=== PATIENT | male | born 1970 | race Caucasian/White ===

== ENCOUNTER 2024-10-22 17:29 | Inpatient (IN) | payer MEDICAID, SELFPAY ==
[2024-10-22] VITALS (19 sets, daily range): BP systolic 176–252; BP diastolic 114–170; PULSE 58–104; RESP 15–32; TEMP 37–37.1; O2SAT 93–100; BMI 46.7
--- NOTE | 2024-10-22 17:32 | PC.NURSE ---
Patient to er via ems from home with c/o sob, non med compliant with medication, increased sob today, patient has h/o copd smokes intermittently, and CHF. Patient states he has been out of all his home medications for a month. Patient currently speaking 2-3 sentences with difficulty, RR 26 bpm and 02 sats 95% on 4l/02 via MA, chart up to be seen by er provider.
--- NOTE | 2024-10-22 17:40 | EKG_ITS ---
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1970 Requested By: Prince Vásquez Order Number: [id number] Reading MD: Prince Vásquez Measurements Intervals [place] Rate: 97 P: 74 [place]: 223 QRS: -35 QRSD: 118 T: 113 QT: 387 QTc: 493 Interpretive Statements SINUS RHYTHM WITH FIRST DEGREE AV BLOCK LEFT AXIS DEVIATION [QRS AXIS < -30] MODERATE INTRAVENTRICULAR CONDUCTION DELAY [110+ ms QRS DURATION] ST DEVIATION AND MODERATE T-WAVE ABNORMALITY, CONSIDER LATERAL ISCHEMIA [-0.1+ mV T-WAVE IN I/aVL/V5/V6] Compared to ECG 02/02/2024 15:41:34 First degree AV block now present T-wave abnormality still present Possible ischemia still present /store/S0/[id number]/ecg/[id number].pdf
--- NOTE | 2024-10-22 18:11 | EDNOTE_ITS ---
ED SOB =RME/HPI General Chief Complaint: Shortness of Breath/Dyspnea Stated Complaint: SHORTNESS OF BREATH Time Seen by Provider: 10/22/24 18:11 Arrival date/time: 10/22/24 17:29 Limitations: no limitations RME / HPI RME / HPI Narrative: DR. PARRA?S MAIN ED EVALUATION: 54-year-old male with history of Sleep apnea, Type II DM, CHF and COPD presenting to the emergency department via EMS who is presenting for chief complaint of worsening shortness of breath and low chest pain x last couple of months. Patient reports fluid and phlegm in the lungs and feels like he is drowning. He has been off of his CHF and COPD medications for a couple of months now. Patient decided to come in for evaluation because his got tired of hearing him complain . Patient denies any other associated symptoms or medical complaints. - PMH: Arrhythmia, Congestive Heart Failure, Cardiomyopathy, Edema, Hypertension, Chronic Obstructive Pulmonary Disease (COPD), Asthma and Sleep Apnea, Hiatal Hernia, Diabetes Mellitus Type 2, Depression and Anxiety - PSH: Denies - Social history: Smoker - Current medications: Reviewed PCP is Salvador Richards MD MD Complaint: shortness of breath and chest pain Onset (ago): month(s) (2) Context: medication noncompliance Consistency/Duration: constant Exacerbating factors: exertion Known history of: COPD, congestive heart failure and diabetes Associated symptoms: chest pain and sputum production Related Data Previous Rx's ?Medication ?Instructions ?Recorded albuterol sulfate 90 mcg/actuation 2 puff inhalation Q 6H PRN 12/08/19 aerosol inhaler shortness of breath or wheez ing #18 grams amlodipine 10 mg tablet 10 mg PO QDAY 30 days #30 ta bs 02/08/24 aspirin 81 mg tablet,delayed 81 mg PO QDAY 30 days #30 tabs 02/08/24 release blood sugar diagnostic (Accutrend #50 ea 02/08/24 Glucose test strips) blood-glucose meter (Accu-Chek #1 ea 02/08/24 Guide Glucose Meter) bumetanide 2 mg tablet 2 mg PO BID #60 tabs 4 buspirone 15 mg tablet 7.5 mg (1/2 x 15 mg) PO BID 30 02/08/24 days #30 tabs carvedilol 12.5 mg tablet 25 mg (2 x 12.5 mg) PO Q12HR 30 02/08/24 days #60 tabs dapagliflozin propanediol 10 mg 10 mg PO QAM 30 days # 30 tabs 02/08/24 tablet fluticasone 250 mcg-salmeterol 50 1 inh inhalation BID 30 days #2 ea 02/08/24 mcg/dose blistr powdr for inhalation insulin glargine 100 unit/mL (3 30 unit (0.3 mL) subcu t QPM #15 mL 02/08/24 mL) subcutaneous pen (Lantus Solostar U-100 Insulin) insulin lispro 100 unit/mL 8 unit (0.08 mL) subcut TID WM #15 02/08/24 subcutaneous pen (Admelog SoloStar mL U-100 Insulin lispro) lancets 23 gauge (Comfort EZ #100 ea 02/08/24 Lancets) sacubitril 24 mg-valsartan 26 mg 1 tab PO BID 30 days #60 tabs 02/08/24 tablet (Entresto) tamsulosin 0.4 mg capsule 0.4 mg PO QDAY 30 days #30 c aps 02/08/24 Allergies Allergy/AdvReac Type Severity Reaction Status Date / Time ibuprofen Allergy Unknown HIVES Verified 06/26/23 00:02 Penicillins Allergy Unknown UNKNOWN Verified 06/26/23 00:02 Sulfa (Sulfonamide Allergy Unknown UNKNOWN Verified 06/26/23 00:02 Antibiotics) vancomycin Allergy Unknown UNKNOWN Verified 06/26/23 00:02 Review of Systems Review of Systems Systems Reviewed: All systems reviewed, normal except as documented Cardiovascular Cardiovascular: Reports chest pain, Reports dyspnea and Reports dyspnea on exertion Respiratory Respiratory: Reports dyspnea, Reports dyspnea on exertion and Reports excessive phlegm production Past Medical History Past Medical History CARDIAC: Positive Cardiac Disorders, Cardiac Arrhythmia, Congestive Heart Failure, Cardiomyopathy, Edema and Hypertension RESPIRATORY: Positive Chronic Obstructive Pulmonary Disease (COPD), Asthma and Sleep Apnea GASTROINTESTINAL: Positive Gastrointestinal Disorders and Hiatal Hernia ENDOCRINE: Positive Endocrine Disorders and Diabetes Mellitus Type 2 PSYCHO/SOCIAL: Positive Depression and Anxiety Social History SMOKING STATUS: Current some day smoker ED Exam General Limitations: Present no limitations General appearance: Present alert, obese and other (appears clinically ill, awake, sitting with feet over the bed urinating) Head Head exam: Present atraumatic, normocephalic and normal inspection Eye Eye exam: Absent EOMI, scleral icterus or nystagmus ENT ENT exam: Present mucous membranes dry Neck Neck exam: Present normal inspection, full ROM and trachea midline Chest Chest inspection: Present normal inspection and symmetric chest wall rise; Absent rash Respiratory Respiratory exam: Present respiratory distress and other (decreased lung sounds, tachypneic); Absent wheezes or accessory muscle use Cardiovascular Cardiovascular exam: Present tachycardia; Absent normal rhythm Abdominal Exam Abdominal exam: Present soft and other (large abdomen); Absent distention, tenderness, guarding, rebound or rigidity Extremities Exam Extremities exam: Present other (vascular changes BLL); Absent pedal edema Back Exam Back exam: Present other Neurological Exam Neurological exam: Present alert; Absent motor sensory deficit Psychiatric Psychiatric exam: Present normal affect Skin Skin exam: Present diaphoresis Course Course Course Narrative: 18:12: Sepsis alert initiated. Patient went on LASIX due to increased CHF symptoms. At this time will not start the 30k bolis. Re-evaluation is to be completed Quality Measures Current suspected stage: sepsis Possible source: pulmonary Blood cultures ordered: yes Antibiotic ordered: Yes Pertinent labs: 10/22/24 18:24 Lactic Acid 2.0 mMol/L (0.4-2.0) Procalcitonin 0.30 ng/ml (0.0-0.49) sepsis Orders Category Date Time Status [employer] Machine Set Up Mechanic Q4H START 00 Care 10/22/24 17:40 Active [employer] Machine Set Up Mechanic STAT Care 10/22/24 18:12 Completed Continuous Pulse Oximetry STAT Care 10/22/24 18:12 Completed EKG (ED ONLY) *Do not use* NOW Care 10/22/24 17:40 Completed Insert IV NOW Care 10/22/24 18:12 Completed NPO STAT Care 10/22/24 18:12 Active Strict Intake and Output Routine Care 10/22/24 18:12 Ordered EKG (ED Only) Stat Exams 10/22/24 17:40 Ordered XR chest 1V SEPSIS PROTOCOL Stat Exams 10/22/24 18:13 Completed B-Type Natriuretic Peptide Stat Lab 10/22/24 19:00 Completed Blood Culture (Lab) Stat Lab 10/22/24 18:24 Received CBC Stat Lab 10/22/24 19:00 Completed Comprehensive Metabolic Panel Stat Lab 10/22/24 18:24 Completed Drug Screen,Urine Stat Lab 10/22/24 19:19 Completed LDH (Lactate Dehydrogenase) Stat Lab 10/22/24 18:24 Completed Lactate (Lactic Acid) Stat Lab 10/22/24 18:24 Completed Lipase Stat Lab 10/22/24 18:24 Completed Magnesium Stat Lab 10/22/24 18:24 Completed Partial Thromboplastin Time Stat Lab 10/22/24 18:24 Completed Phosphorous Stat Lab 10/22/24 18:24 Completed Procalcitonin Stat Lab 10/22/24 18:24 Completed Prothrombin Time with INR Stat Lab 10/22/24 18:24 Completed Sputum Culture and Gram Stain Stat Lab 10/22/24 20:38 Received Troponin I Stat Lab 10/22/24 18:24 Completed Urinalysis Stat Lab 10/22/24 18:45 Completed Urine Culture Stat Lab 10/22/24 18:45 Received VBG [Venous Blood Gas] Stat Lab 10/22/24 19:14 Completed VBG [Venous Blood Gas] Stat Lab 10/22/24 23:47 Ordered Azithromycin Inj [Zithromax Inj] 500 mg Med 10/22/24 18:21 Pending Sodium Chloride 0.9% 250 ml [Ns] 250 ml IV QDAY Azithromycin Inj [Zithromax Inj] 500 mg Med 10/22/24 18:30 Discontinued Sodium Chloride 0.9% 250 ml [Ns] 250 ml IV X1 Dexmedetomidine 400 Mcg Ivpb [Precedex Ivpb] Med 10/22/24 20:35 Active 400 mcg in 100 ml IV 0.2 mcg/kg/hr Furosemide Inj [Lasix Inj] Med 10/22/24 18:17 Discontinued 40 mg IVP X1 ONE Nitroglycerin Oint 2% [Nitro-paste Oint 2%] Med 10/22/24 18:22 Discontinued 1 inch TOP X1 ONE Nitroglycerin/D5w 50 MG IVPB [Nitroglycerin in D5w Ivpb Med 10/22/24 20:57 Active ] 50 mg in 250 ml IV 5 mcg/min cefTRIAXone/D5w 1gm IV premix [Rocephin/D5w 1gm IV Med 10/22/24 18:20 Discontinued premix] 1 gm in 50 ml IV X1 BiPAP / CPAP NOW RT 10/22/24 18:17 Active Oxygen Delivery NOW RT 10/22/24 18:12 Active Reevaluation(s) Time: 19:00 Reevaluation #2: Patient sleeping, blood pressure improved. Dr. Ann at bedside, treatment for BP at this time. Time: 22:48 Vital Signs Vital signs: Vital Signs Temperature 98.8 F 10/22/24 17:32 Pulse Rate 96 10/22/24 17:32 Respiratory Rate 32 H 10/22/24 17:32 Blood Pressure 252/170 H 10/22/24 17:32 Pulse Oximetry (%) 93 L 10/22/24 17:32 Oxygen Delivery Method Nasal Cannula 10/22/24 17:32 Oxygen Flow Rate 4 10/22/24 17:32 Shortness of Breath / Dyspnea MDM Narrative MDM Narrative:: Scribe Attestation: 10/22/2024 - I, Isabel Schwartz, se scribing for and in the presence of Dr. Parra. Provider Notation: Although this document has been carefully reviewed, there may still be some phonetic and other typographical errors.? These errors are purely grammatical due to imperfections in the software program and should not be construed in any way to compromise the substance of the patient's medical care during this visit. 54-year-old male with history of Sleep apnea, Type II DM, CHF and COPD presenting to the emergency department via EMS who is presenting for chief complaint of worsening shortness of breath and low chest pain x last couple of months. ROS: shortness of breath, low chest pain Differential diagnosis includes CHF exacerbation, Pneumonia, Sepsis, PE, Non- complaint hypertensive urgency, Non-compliant hypertensive emergency Patient data External records reviewed:: [facility] previous records (Reviewed prior ED records from 06/26/23. Patient was last seen for History of medication noncompliance.) and EMS form Clinical information provided by:: patient Social determinants that could affect healthcare access:: none Patient has the following chronic illnesses:: Arrhythmia, Congestive Heart Failure, Cardiomyopathy, Edema, Hypertension, Chronic Obstructive Pulmonary Disease (COPD), Asthma and Sleep Apnea, Hiatal Hernia, Diabetes Mellitus Type 2, Depression and Anxiety How is presenting disease/condition affected by chronic disease/condition?: exacerbated by Evaluation data The following diagnostics were reviewed and interpreted by me:: lab results, radiology exam(s) and EKG tracing(s) (EKG manual reading, October 22, 2024 1741 hours, my interpretation: sinus rhythm, 97 BPM, QTc is 442, no ST elevations or depressions.) Lab and/or radiology exams considered but not ordered:: None Interpretation Summary: RADIOLOGY Chest X-Ray: CXR, my interpretation: reviewed, interpreted, and agreed with radiologist report; see below. FINDINGS: Bpkb-pw-tvzyetlo CHF Ttwh-cb-khavsscm enlargement cardiac contour. Prominent vascular congestion and perihilar and basilar edema Moderate to large right pleural effusion Impression : Utvf-hc-rzozlgxa CHF Moderate to large right pleural effusion LABS Hgb 13.3, Hct 39.9%, RDW Std Dev 47.5, Lymphocyte a# 0.9, Monocyte # 0.9, Immature Granulocyte # 0.04. PT 12.7. VGB O2 Sat 87%. BUN 33, Creatinine 2.2, Estimated Creatinine Clear calc 54.6, eGFR34, Glucose 178, Calcium 8.2, Corrected Calcium 8.4, AST 340, ALT 169, Alkaline Phosphates 157, Lactate Dehydrogenase 591, B-Natriuretic Peptide 2846, Albumin/Globulin Ratio 1.1. Urine protein 3+, Urine glucose 2+, Urine Blood 2+, Urine RBC 6. Medications / Prescriptions Medications or Prescriptions considered but not ordered:: None Medication administrations:: Medication Administration History Azithromycin 500 mg/ Sodium (Chloride) 250 mls @ 250 mls/hr IV QDAY [facility] Stop: 10/29/24 18:20 Dexmedetomidine/Sodium Chloride (Precedex Ivpb) 400 mcg in 100 mls @ 7.385 mls/hr IV .[id number] PRN; Protocol PRN Reason: Per PROTOCOL Stop: 11/21/24 20:31 Last Titration: 10/22/24 23:21 Dose: 0.8 mcg/kg/hr, 29.538 mls/hr Documented By: Titration: 10/22/24 23:00 Dose: 0.6 mcg/kg/hr, 22.154 mls/hr Documented By: Titration: 10/22/24 22:00 Dose: 0.6 mcg/kg/hr, 22.154 mls/hr Documented By: Titration: 10/22/24 21:55 Dose: 0.6 mcg/kg/hr, 22.154 mls/hr Documented By: Titration: 10/22/24 21:25 Dose: 0.4 mcg/kg/hr, 14.769 mls/hr Documented By: Admin: 10/22/24 20:52 Dose: 0.2 mcg/kg/hr, 7.385 mls/hr Documented By: RENZO Co-signed By: NOÉ Nitroglycerin/Dextrose (Nitroglycerin In D5w Ivpb) 50 mg in 250 mls @ 1.5 mls/hr IV .Q24H PRN; Protocol PRN Reason: PER PROTOCOL Stop: 11/21/24 20:56 Discontinued Medications Furosemide (Furosemide Inj 10 Mg/Ml 4ml Vial) 40 mg IVP X1 ONE Stop: 10/22/24 18:18 Last Admin: 10/22/24 18:28 Dose: 40 mg Documented By: ELENA Ceftriaxone Sodium/Dextrose (Rocephin/D5w 1gm Iv Premix) 1 gm in 50 mls @ 100 mls/hr IV X1 ONE Stop: 10/22/24 18:49 Last Infusion: 10/22/24 19:00 Dose: Infused Documented By: Admin: 10/22/24 18:29 Dose: 100 mls/hr Documented By: ELENA Azithromycin 500 mg/ Sodium (Chloride) 250 mls @ 250 mls/hr IV X1 ONE Stop: 10/22/24 19:29 Last Infusion: 10/22/24 20:40 Dose: Infused Documented By: Admin: 10/22/24 19:38 Dose: 250 mls/hr Documented By: NOÉ Nitroglycerin (Nitroglycerin Oint 2% 1 Inch Packet) 1 inch TOP X1 ONE Stop: 10/22/24 18:23 Last Admin: 10/22/24 18:28 Dose: 1 inch Documented By: ELENA See above if any Consultations Consultation(s) initiated? (list below): Yes Consultation #1 (Physician, Specialty, Details): Dr. Ann, hospitalist coming for flight communications specialist, made aware of the patient?s HPI, PMHx, lab and/or radiology results. Discussed treatment plan. Will consult an admission to the hospitalist. Time: 22:50 Diagnosis Shortness of Breath Differential Diagnosis: other (CHF exacerbation, Pneumonia, Sepsis, PE, Non-complaint hypertensive urgency, Non-compliant hypertensive emergency) Most likely diagnosis given after review of the tests above:: Sepsis, Acute renal failure, Acute dyspnea, Hx of medication noncompliance, CHF, BL pleural effusion, Hypertensive emergency Admission Indicated Admission indicated?: indicated Explain why admission is indicated or not indicated:: Sepsis, Acute renal failure, BL pleural effusion, Hypertensive emergency, CHF Admission Request Was there a request for admission?: Yes Admission Attestation Admission request attestation: Discussed case with [] from Hospitalist service regarding admission. Discussed patients ED course, exam findings, labs, and radiology results. The Hospitalist [agrees,declines] to accept the patient for admission. Disposition Plan Disposition Plan: Admit Critical Care Time Critical Care Time Critical Care Time: Yes Total Critical Care Time (min.): 45 Attestation: The high probability of sudden, clinically significant deterioration in the patient?s condition required the highest level of my preparedness to intervene urgently. The services I provided to this patient were to treat and/or prevent clinically significant deterioration. Services included the following: chart data review, reviewing nursing notes and/or old charts, documentation time, it systems analyst consultant collaboration regarding findings and treatment options, medication orders and management, direct patient care, vital sign assessments and ordering, interpreting and reviewing diagnostic studies and lab tests. Aggregate critical care time includes only time during which I was engaged in work directly related to the patient?s care, as described above, whether at bedside or elsewhere in the Emergency Department. It did not include time spent performing other reported procedures or the services of residents, students, nurses or physician assistants. Discharge Plan Plan Patient Disposition: Admit Acute Care w/in Hospital Patient condition on transfer: Stable Prescriptions/Referrals Prescriptions/Med Rec: No Action albuterol sulfate 90 mcg/actuation HFA aerosol inhaler 2 puff IH Q6H PRN (Reason: shortness of breath or wheezing) Qty: 18 0RF amlodipine 10 mg tablet 10 mg PO QDAY 30 Days Qty: 30 3RF bumetanide 2 mg tablet 2 mg PO BID Qty: 60 0RF carvedilol 12.5 mg Tablet 25 mg PO Q12HR 30 Days Qty: 60 3RF aspirin 81 mg Tablet,Delayed Release (Dr/Ec) 81 mg PO QDAY 30 Days Qty: 30 0RF insulin lispro [Admelog SoloStar U-100 Insulin] 100 unit/mL insulin pen 8 unit subcut TIDWM Qty: 15 3RF insulin glargine [Lantus Solostar U-100 Insulin] 100 unit/mL (3 mL) insulin pen 30 unit subcut QPM Qty: 15 3RF (DME) Comfort EZ Lancets 23 gauge misc See Rx Instructions .Route Qty: 100 3RF Rx Instructions: As directed (DME) blood-glucose meter [Accu-Chek Guide Glucose Meter] Misc See Rx Instructions .Route Qty: 1 0RF Rx Instructions: As directed (DME) Accutrend Glucose test strips Strip See Rx Instructions .Route Qty: 50 3RF Rx Instructions: As directed fluticasone propion-salmeterol 250-50 mcg/dose blister with device 1 inh INHALATION BID 30 Days Qty: 2 0RF tamsulosin 0.4 mg capsule 0.4 mg PO QDAY 30 Days Qty: 30 0RF buspirone 15 mg Tablet 7.5 mg PO BID 30 Days Qty: 30 0RF dapagliflozin propanediol 10 mg tablet 10 mg PO QAM 30 Days Qty: 30 0RF Entresto 24-26 mg Tablet 1 tab PO BID 30 Days Qty: 60 0RF Referrals: Salvador Richards MD [Primary Care Provider] - In 1 week Problem List Clinical Impression: Acute dyspnea, Hx of medication noncompliance, CHF (congestive heart failure), Bilateral pleural effusion, Hypertensive emergency, Acute renal failure, Sepsis Patient/Caregiver Discharge Instructions Print Language: Malay Stand Alone Forms: Donna Award Info., Patient Portal Info Letter
--- NOTE | 2024-10-22 18:13 | XR_ITS ---
Examination: AP chest single view TECHNIQUE: AP portable semiupright chest single view Exam date and time: Chris 23/06/2024 at 1848 hours Comparison February 02, 2024 INDICATION: Shortness of breath and 8. FINDINGS: Cccz-hf-byoolift CHF Ojhx-ig-qvcmozpz enlargement cardiac contour. Prominent vascular congestion and perihilar and basilar edema Moderate to large right pleural effusion Impression : Ncdn-kn-cvjejbdy CHF Moderate to large right pleural effusion
[2024-10-22] MEDS: FUROSEMIDE INJ 10 MG/ML 4ML VIAL 40 MG IVP (18:28)
[2024-10-22] MEDS: NITROGLYCERIN OINT 2% 1 INCH PACKET TOP (18:28)
[2024-10-22] MEDS: cefTRIAXone/D5w 1gm IV premix 1 GM/50 ML BAG IV (18:29)
--- NOTE | 2024-10-22 18:37 | PC.NURSE ---
RT placed patient on Bi-pap at 1830, patient states he feels better and can breath better.
[2024-10-22 19:06] LABS: Collection Type, Urine Clean Catch; WBC,Urine 0 /hpf (0-5)
[2024-10-22 19:07] LABS: INR 1.2 (0.9-1.3); Partial Thromboplastin Time 25.2 Seconds (22.0-36.0); Prothrombin Time 12.7 Seconds (9.0-12.2)
[2024-10-22 19:10] LABS: Basophils % (Auto) 0 % (0-2.5); Eosinophils % (Auto) 0 % (0-10); Hematocrit 39.9 % (41.0-53.0); Hemoglobin 13.3 g/dL (13.5-16.0); Immature Granulocytes % (Auto) 0 % (0-0); Immature Granulocytes Auto 0.04 Thou/mm3 (0.00-0.00); Lymphocytes # (Auto) 0.9 Thou/mm3 (1.0-4.8); Lymphocytes % (Auto) 10 % (10-50); Mean Corpuscular HGB Conc 33.3 g/dl (31.0-37.0); Mean Corpuscular Hemoglobin 28.5 pg (25.0-35.0); Mean Corpuscular Volume 86 fL (80-100); Monocytes # (Auto) 0.9 Thou/mm3 (0.0-0.8); Monocytes % (Auto) 9 % (0-12); Neutrophils # (Auto) 7.3 Thou/mm3 (1.8-7.7); Neutrophils % (Auto) 80 % (37-80); Nucleated Red Blood Cell % 0 /100 WBC (0); Platelet Count 230 Thou/mm3 (140-440); RDW Standard Deviation 47.5 fL (35.1-43.9); Red Blood Count 4.66 Miln/mm3 (4.50-5.90); White Blood Count 9.1 Thou/mm3 (3.8-10.6)
[2024-10-22 19:16] LABS: Alanine Aminotransferase 169 U/L (10-49); Albumin, Serum 3.8 gm/dL (3.5-5.0); Albumin/Globulin Ratio 1.1 (1.2-2.2); Alkaline Phosphatase 157 U/L (46-116); Anion Gap 10 (7-16); Aspartate Amino Transferase 340 U/L (0-34); BUN/Creatinine Ratio 15 Ratio (12-20); Bilirubin,Total 1.1 mg/dL (0.3-1.2); Blood Urea Nitrogen 33 mg/dL (9-23); Calcium 8.2 mg/dL (8.3-10.6); Calcium (Corrected) 8.4 mg/dL (8.5-10.1); Carbon Dioxide 29.9 mMol/L (20.0-31.0); Chloride 101 mMol/L (98-107); Creatinine (Component) 2.2 mg/dL (0.6-1.3); Estimated Creatinine Clearance 54.6 mL/min (>60); Globulin 3.4 gm/dL (2.3-3.5); Glucose 178 mg/dL (74-106); LDH (Lactate Dehydrogenase) 591 U/L (120-246); Lipase 27 U/L (12-53); Magnesium 2.2 mg/dL (1.6-2.6); Osmolality,Calculated 292 (275-295); Phosphorous 4.7 mg/dL (2.4-5.1); Potassium 3.9 mMol/L (3.4-5.1); Sodium 141 mMol/L (136-145); Total Protein 7.2 gm/dL (5.7-8.2); eGFR 34 See Note
[2024-10-22 19:16] LABS: Bacteria,Urine Rare; Bilirubin,Urine Negative (Negative); Blood,Urine 2+ (Negative); Clarity,Urine Clear (Clear/Hazy); Color,Urine Yellow (Lt Yel-Yel); Glucose, Urine 2+ (Negative); Hyaline Casts,Urine < 1 /hpf (0-1); Ketones,Urine Negative (Negative); Leukocyte Esterase,Urine Negative (Negative); Nitrite,Urine Negative (Negative); PH,Urine 6.5 (5.0-7.0); Protein,Urine 3+ (Neg - Trace); RBC,Urine 6 /hpf (0-3); Specific Gravity,Urine 1.029 (1.001-1.035); Squamous Epithelial Cell,Urine 1 /hpf (0-5); Urobilinogen,Urine Negative mg/dL (0.0-1.0)
[2024-10-22 19:22] LABS: Base Excess, Venous 3 (-3-3); O2 Saturation, Venous 87 % (96-97); PCO2, Venous 55 mmHg (36-56); PO2, Venous 58 mmHg (15-58); pH, Venous 7.35 (7.33-7.66)
[2024-10-22 19:32] LABS: B-Type Natriuretic Peptide 2846 pg/mL (0-100)
[2024-10-22] MEDS: AZITHROMYCIN INJ 500 MG in SODIUM CHLORIDE 0.9% 250 ML 250 ML 250 MG IV (19:38)
--- NOTE | 2024-10-22 19:46 | PC.NURSE ---
MD aware of BP 229/149 no new orders at this time.
[2024-10-22 20:04] LABS: Amphetamine/Methamp Scrn,U Positive (Negative); Barbiturate Screen,Urine Negative (Negative); Benzodiazepines Screen,Urine Negative (Negative); Benzoylecgonine Screen, Ur Negative (Negative); Fentanyl Screen,Urine Negative (Negative); Opiate Screen,Urine Negative (Negative); THC Screen,Urine Negative (Negative)
--- NOTE | 2024-10-22 20:10 | PC.NURSE ---
called into room by Jennifer the patient became upset and took off his bipap was wanting to leave. Kevan braun called and pt started to calm down a bit. He was requesting something to eat and drink. Educated pt that he was very sick and should stay. Pt agreed to stay. Food and drink given.
[2024-10-22] MEDS: DEXMEDETOMIDINE 400 MCG IVPB 400 MCG/100 ML BAG 7.385 MCG IV (20:52)
[2024-10-23] VITALS (20 sets, daily range): BP systolic 172–220; BP diastolic 104–140; PULSE 42–67; RESP 13–26; O2SAT 96–100; BMI 48.2
[2024-10-23 00:27] LABS: Base Excess, Venous 4 (-3-3); O2 Saturation, Venous 95 % (96-97); PCO2, Venous 53 mmHg (36-56); PO2, Venous 76 mmHg (15-58); pH, Venous 7.37 (7.33-7.66)
[2024-10-23] MEDS: DEXMEDETOMIDINE 400 MCG IVPB 400 MCG/100 ML BAG 36.923 MCG IV ×2 (00:43→04:34)
--- NOTE | 2024-10-23 00:46 | ESHP_ITS ---
<Statement entered by Sid Ann MD - 10/23/24 13:47> I have discussed and was present for the essential components of the history, physical examination, diagnosis, and treatment plan with the resident. I agree with the patient's care as documented by the resident and amended herein by me. Sid Ann MD FACP. Documentation for date of: 10/23/24 HPI History of Present Illness Chief complaint: Shortness of breath History of present illness: Mr. Cantu is a 54-year-old male with past medical history of hypertension, insulin-dependent diabetes, COPD unknown home O2 use, HFrEF with a EF of 25 to 30% on echo January 2024, pulmonary artery hypertension with pulmonary artery systolic pressure measured at 52 mmHg, JEREMI, depression, anxiety and substance use disorder who presented to [facility] with a chief complaint of shortness of breath. Patient was asleep on BiPAP so history was primarily obtained from chart review. According to ED patient came to the hospital with a chief complaint of shortness of breath for period of couple of months. Patient was previously prescribed lots of medications in regards to his CHF and COPD but has been noncompliant and had been complaining to his at home who had recommended that he go to the emergency department. Patient stated that he felt that he was drowning and he was having lots of phlegm every time he coughed. No further history was able to be obtained due to patient being asleep on Precedex drip. Past medical history: HFrEF 25 to 30%, hypertension, COPD, JEREMI, insulin- dependent diabetes, depression, anxiety and substance abuse disorder Past surgical history: None Social history: Patient is an active smoker with half pack per day Colon allergies: Penicillins, sulfa antibiotics, vancomycin and ibuprofen Family history: Unknown ED vitals: BP 252/170, pulse 96, RR 32, temp afebrile, O2 sat 93 on 4 L via nasal cannula. ED labs: WBC 9.1, hemoglobin 13.3, BUN 33, creatinine 2.2, glucose 178, AST 340, ALT 169. Alk phos 157, LDH 591, BNP 2846. U/A: 3+ protein, 2+ glucose, 2+ blood. U tox: Positive for methamphetamine. VBG with pH of 7.37, PO2 of 76, and O2 sat 95% ED imaging: Chest x-ray reveals mild to moderate CHF and moderate to large right pleural effusion ED management: Lasix 40 mg IV push x 1, nitro topical patch x 1, ceftriaxone and azithromycin x 1, patient initiated on Precedex drip. Dispo: Patient is admitted to ICU for the management of hypertensive urgency and agitation requiring Precedex drip. Review of Systems Review of Systems Systems Reviewed: All systems reviewed, normal except as documented Exam Vital Signs Temp Pulse Resp BP Pulse Ox O2 Del Method O2 Flow Rate 98.6 F 58 L 15 183/114 H 97 BiPAP 4 10/22/24 21:09 10/22/24 23:45 10/22/24 23:45 10/22/24 23:45 10/22/24 23:45 10/22/24 21:09 10/22/24 17:32 FiO2 30 10/22/24 22:30 Narrative Exam GENERAL: Patient is asleep on BiPAP. Carolyn nelson called for him early in the night requiring the use of Precedex drip. Due to his previous agitation did not awaken him. EYES: EOMI. Anicteric. HEENT: Moist mucous membranes. No scleral icterus. No cervical lymphadenopathy. LUNGS: Clear to auscultation bilaterally. No accessory muscle use. CARDIOVASCULAR: Regular rate and rhythm. No murmur. No JVD. ABDOMEN: Soft, non-tender and non-distended. No palpable masses. Morbidly obese EXTREMITIES: All 4 extremeties intact. No edema. Nontender. Chronic stasis dermatitis of bilateral lower extremities SKIN: No rashes or lesions. Warm. NEUROLOGIC: No focal neurological deficits. CN II-XII grossly intact, but not individually tested. PSYCHIATRIC: Unable to assess. Patient did have carolyn nelson in the emergency department requiring the use of Precedex drip. Results: Labs 10/22/24 19:00 10/22/24 18:24 Labs: Short CBC 10/22/24 Range/Units 19:00 WBC 9.1 (3.8-10.6) Thou/mm3 Hgb 13.3 L (13.5-16.0) g/dL Hct 39.9 L (41.0-53.0) % Plt Count 230 (140-440) Thou/mm3 BMP 10/22/24 18:24 Sodium 141 Potassium 3.9 Chloride 101 Carbon Dioxide 29.9 BUN 33 H Creatinine 2.2 H Glucose 178 H Calcium 8.2 L Cardiac Enzymes 10/22/24 Range/Units 18:24 Troponin I 0.040 (0.0-0.045) ng/mL Liver Function 10/22/24 Range/Units 18:24 Total Bilirubin 1.1 (0.3-1.2) mg/dL AST 340 H (0-34) U/L ALT 169 H (10-49) U/L Alkaline Phosphatase 157 H (46-116) U/L Albumin 3.8 (3.5-5.0) gm/dL Urine 10/22/24 Range/Units 18:45 Urine Color Yellow (Lt Yel-Yel) Urine Clarity Clear (Clear/Hazy) Urine pH 6.5 (5.0-7.0) Ur Specific [place] 1.029 (1.001-1.035) Urine Protein 3+ A (Neg - Trace) Urine Glucose (UA) 2+ A (Negative) ABG Interpretation ABG results: 10/22/24 10/23/24 19:14 00:18 VBG pH 7.35 7.37 VBG pCO2 55 53 VBG pO2 58 76 H VBG Base Excess 3 4 H Quality Measures Quality Measures sepsis Current suspected stage: ruled out Possible source: pulmonary Blood cultures ordered: yes Antibiotic ordered: No Medications Home Medications and Allergies Allergies Allergy/AdvReac Type Severity Reaction Status Date / Time ibuprofen Allergy Unknown HIVES Verified 06/26/23 00:02 Penicillins Allergy Unknown UNKNOWN Verified 06/26/23 00:02 Sulfa (Sulfonamide Allergy Unknown UNKNOWN Verified 06/26/23 00:02 Antibiotics) vancomycin Allergy Unknown UNKNOWN Verified 06/26/23 00:02 Visit Medications Albuterol/Ipratropium (Albuterol/Ipratropium (Duoneb) Rt Sarah 3 Ml Nebu) 3 ml INH Q6HRRT MALACHI Stop: 11/22/24 00:59 Amlodipine Besylate (Amlodipine Besylate 5 Mg Tablet) 10 mg PO QDAY MALACHI Stop: 11/22/24 08:59 Aspirin (Aspirin Ec 81 Mg Tabec) 81 mg PO QDAY MALACHI Stop: 11/22/24 08:59 Bumetanide (Bumetanide Inj 0.25 Mg/Ml Vial 4 Ml) 2 mg IVP QDAY MALACHI Stop: 11/22/24 08:59 Buspirone HCl (Buspirone Hcl 5 Mg Tablet) 7.5 mg PO BID [facility] Stop: 11/22/24 08:59 Carvedilol (Carvedilol 12.5 Mg Tablet) 25 mg PO BID [facility] Stop: 11/22/24 08:59 Dextrose (Dextrose 50%-Water Inj 50 Ml Syringe) 50 ml IV Q15MIN PRN PRN Reason: BG <50 OR BG <70 & pt unresponsive Stop: 11/22/24 00:11 Dextrose (Dextrose 50%-Water Inj 50 Ml Syringe) 25 ml IV Q15MIN PRN PRN Reason: BG 50-70 responsive npo pt Stop: 11/22/24 00:11 Enoxaparin Sodium (Enoxaparin Sod Inj 40 Mg/0.4 Ml Syringe) 40 mg SC QDAY [facility] Stop: 11/06/24 08:59 Glucagon (Glucagon Inj 1 Mg Vial) 1 mg IM Q15MIN PRN PRN Reason: BG <70, and no IV access Azithromycin 500 mg/ Sodium (Chloride) 250 mls @ 250 mls/hr IV QDAY [facility] Stop: 10/29/24 18:20 Dexmedetomidine/Sodium Chloride (Precedex Ivpb) 400 mcg in 100 mls @ 7.385 mls/hr IV .[id number] PRN; Protocol PRN Reason: Per PROTOCOL Stop: 11/21/24 20:31 Last Titration: 10/23/24 00:00 Dose: 1 mcg/kg/hr, 36.923 mls/hr Nitroglycerin/Dextrose (Nitroglycerin In D5w Ivpb) 50 mg in 250 mls @ 1.5 mls/hr IV .Q24H PRN; Protocol PRN Reason: PER PROTOCOL Stop: 11/21/24 20:56 Insulin Human Lispro (Insulin Lispro (Admelog) 1 Unit/0.01 Ml Unit) 0 unit SC Q6HR MALACHI; Protocol Stop: 11/22/24 05:59 Ondansetron HCl (Ondansetron Inj 2 Mg/Ml Inj 2 Ml) 4 mg IV Q6H PRN; Protocol PRN Reason: NAUSEA OR VOMITING Stop: 11/22/24 00:05 Fluticasone/Salmeterol (Fluticasone/Salmeterol 250/50 14 Dose Inh) 1 puff INH BIDRT [facility] Stop: 11/22/24 06:59 Sennosides (Senna Tablet) 1 tab PO QDAY MALACHI; Protocol Stop: 11/22/24 08:59 Discontinued Medications Furosemide (Furosemide Inj 10 Mg/Ml 4ml Vial) 40 mg IVP X1 ONE Stop: 10/22/24 18:18 Last Admin: 10/22/24 18:28 Dose: 40 mg Ceftriaxone Sodium/Dextrose (Rocephin/D5w 1gm Iv Premix) 1 gm in 50 mls @ 100 mls/hr IV X1 ONE Stop: 10/22/24 18:49 Last Infusion: 10/22/24 19:00 Dose: Infused Azithromycin 500 mg/ Sodium (Chloride) 250 mls @ 250 mls/hr IV X1 ONE Stop: 10/22/24 19:29 Last Infusion: 10/22/24 20:40 Dose: Infused Nitroglycerin (Nitroglycerin Oint 2% 1 Inch Packet) 1 inch TOP X1 ONE Stop: 10/22/24 18:23 Last Admin: 10/22/24 18:28 Dose: 1 inch Assessment & Plan Plan Neurology Problem: Acute agitation and substance use disorder Diagnostic Test: U tox positive for amphetamines. Unable to obtain ABG with adequate VBG results of CO2 of 53 pH of 7.37 and O2 76 with O2 sat of 95%. Treatment Plan: Precedex drip initiated. Patient's home medication of buspirone resumed. Will add further medications for agitation if patient continues to demonstrate aggressive behavior. CT head pending Treatment Review: Cardiovascular Problem: Hypertensive urgency Diagnostic Test: Initial blood pressure 252/170. Patient received topical nitroglycerin and Lasix 40 in the ED. Emergency department had a plan to start the patient on nitro drip but was able to get the patient's blood pressure down into the 180s with Precedex drip. Hypertension may be secondary to amphetamine use and agitation from CHF exacerbation. Treatment Plan: Will resume Coreg 25 mg p.o. twice daily and amlodipine 10 mg p.o. daily. Along with IV Bumex 2 mg. Will resume Entresto once appropriate Treatment Review: Problem: CHF exacerbation Diagnostic Test: HFrEF of 25% in January 2024. BNP 2846 with chief complaint of dyspnea and orthopnea. X-ray findings of CHF and right-sided pleural effusion Treatment Plan: Start the patient on his previous diuretics of Bumex 2 mg IV daily and his previous CHF medications including Coreg 25 mg p.o. twice daily, amlodipine 10 mg p.o. daily. Holding Entresto for now and will resume once appropriate. Will order echo for new measurements of EF and pulmonary artery systolic pressure Treatment Review: Respiratory Problem: Acute on chronic hypoxic respiratory failure secondary to CHF versus COPD exacerbation and JEREMI/OHS Diagnostic Test: Lungs clear to auscultation bilaterally without wheezes or crackles but auscultated from anterior. Chest x-ray reveals moderate right- sided pleural effusion. Treatment Plan: Initiate the patient on BiPAP Resume the patient on DuoNebs and fluticasone. Have not happened steroids because it appears that patient is suffering more from CHF exacerbation Treatment Review: GI and F/E/N Problem: Transaminitis Diagnostic Test: AST 340, ALT 169, alk phos 157 Treatment Plan: Will order right upper quadrant ultrasound. Asymptomatic upon clinical examination. May be secondary to hepatic congestion from severe HFrEF Treatment Review: Renal Problem: Mild INEZ likely due to cardiorenal syndrome Diagnostic Test: Creatinine 2.2. Patient has previously been around 2.0 Treatment Plan: Will resume patient's antihypertensives and diuretics to see if there is improvement in creatinine. Held Entresto for now Treatment Review: Heme Problem: Stable, none DDx: Diagnostic Test: Treatment Plan: Treatment Review: Endo Problem: Insulin-dependent diabetes mellitus DDx: Diagnostic Test: Patient is noncompliant with his antidiabetic medication but previously was prescribed insulin. Treatment Plan: Sliding scale insulin resumed Treatment Review: ID Problem: None DDx: Diagnostic Test: Patient received Rocephin and azithromycin in the emergency department but chest x-ray is not suggestive of pneumonia Treatment Plan: Will hold off on antibiotic therapies Treatment Review: DVT prophylaxis: Lovenox 40 subcu daily GI prophylaxis: None Diet: Cardiorenal cardiac and renal diet. Fluid restriction of 1.5 L daily [place]: Not indicated Lines: Peripheral IVs Drips: Precedex for agitation Vent: BiPAP CODE STATUS: Full code Reason for hospitalization acute on chronic hypoxic respiratory failure secondary to CHF exacerbation in the setting of medication noncompliance and continued amphetamine use Plan of care discussed with supervising attending Dr. Marissa Nj M.D. PGY-3
--- NOTE | 2024-10-23 01:58 | PC.NURSE ---
report called to Jose KINNEY
[2024-10-23] MEDS: DEXMEDETOMIDINE 400 MCG IVPB 400 MCG/100 ML BAG 51.692 MCG IV (02:30)
--- NOTE | 2024-10-23 02:41 | EKG_ITS ---
[facility] (Formerly [facility]) Test Date: 2024-10-23 Pat Name: UDAY DEGROOT Department: Room: S255A Gender: Male [employer]: TESHA : 1970 Requested By: Jasmin Nj Order Number: [id number] Reading MD: Jasmin Nj Measurements Intervals [place] Rate: 58 P: 60 ND: 213 QRS: -26 QRSD: 118 T: 141 QT: 495 QTc: 489 Interpretive Statements SINUS BRADYCARDIA WITH SINUS ARRHYTHMIA WITH FIRST DEGREE AV BLOCK BORDERLINE LEFT AXIS DEVIATION MODERATE INTRAVENTRICULAR CONDUCTION DELAY MODERATE T-WAVE ABNORMALITY, CONSIDER LATERAL ISCHEMIA Compared to ECG 02/02/2024 15:41:34 First degree AV block now present Sinus rhythm no longer present T-wave abnormality still present Possible ischemia still present /store/S0/[id number]/ecg/[id number].pdf
[2024-10-23 06:00] LABS: Basophils % (Auto) 1 % (0-2.5); Eosinophils # (Auto) 0.1 Thou/mm3 (0.0-0.5); Eosinophils % (Auto) 1 % (0-10); Hematocrit 38.9 % (41.0-53.0); Hemoglobin 12.7 g/dL (13.5-16.0); Immature Granulocytes % (Auto) 1 % (0-0); Immature Granulocytes Auto 0.03 Thou/mm3 (0.00-0.00); Lymphocytes % (Auto) 17 % (10-50); Mean Corpuscular HGB Conc 32.6 g/dl (31.0-37.0); Mean Corpuscular Hemoglobin 29.4 pg (25.0-35.0); Mean Corpuscular Volume 90 fL (80-100); Monocytes % (Auto) 17 % (0-12); Neutrophils # (Auto) 3.8 Thou/mm3 (1.8-7.7); Neutrophils % (Auto) 64 % (37-80); Nucleated Red Blood Cell % 0 /100 WBC (0); Platelet Count 175 Thou/mm3 (140-440); RDW Standard Deviation 48.7 fL (35.1-43.9); Red Blood Count 4.32 Miln/mm3 (4.50-5.90); White Blood Count 5.8 Thou/mm3 (3.8-10.6)
[2024-10-23 06:24] LABS: Glucose Estimated Average 243 mg/dL (80-131); Hemoglobin A1C 10.1 % Hgb (4.8-6.0)
[2024-10-23 06:40] LABS: Alanine Aminotransferase 147 U/L (10-49); Albumin, Serum 3.2 gm/dL (3.5-5.0); Albumin/Globulin Ratio 1.1 (1.2-2.2); Alkaline Phosphatase 126 U/L (46-116); Anion Gap 8 (7-16); Aspartate Amino Transferase 177 U/L (0-34); BUN/Creatinine Ratio 14 Ratio (12-20); Bilirubin,Total 0.4 mg/dL (0.3-1.2); Blood Urea Nitrogen 33 mg/dL (9-23); Calcium (Corrected) 8.6 mg/dL (8.5-10.1); Carbon Dioxide 28.9 mMol/L (20.0-31.0); Chloride 100 mMol/L (98-107); Creatinine (Component) 2.3 mg/dL (0.6-1.3); Estimated Creatinine Clearance 53.2 mL/min (>60); Glucose 194 mg/dL (74-106); Magnesium 2.2 mg/dL (1.6-2.6); Osmolality,Calculated 286 (275-295); Phosphorous 5.4 mg/dL (2.4-5.1); Potassium 4.6 mMol/L (3.4-5.1); Sodium 137 mMol/L (136-145); Total Protein 6.2 gm/dL (5.7-8.2); eGFR 33 See Note
[2024-10-23] MEDS: ALBUTEROL/IPRATROPIUM (Duoneb) RT SOL 3 ML NEBU INH (06:47)
--- NOTE | 2024-10-23 07:45 | PC.NURSE ---
Pt was agitated in the room yelling extremely loud and disrupting other patients on the unit. He was stating you cannot keep me here I want to leave. Clinical Clod Puller attempted to calm Pt down, Pt was adamant about wanting to leave. Pt continued to yell, and get louder when he saw the [facility] residents, and other staff on the floor. I spoke to the Pt, was able to get him to stop yelling, and was able to safely remove both IVs. Pt continued to ask to leave. Pt demanded to be wheeled down to the front of the hospital prior to signing AMA paperwork. Pt wheeled out by two staff member, Pt walked to the bench in front of the hospital, and signed AMA paperwork. Clinical post exchange manager discussed risks and benefits of leaving, and asked the Pt to stay, Pt declined and stated he does not want to be at this hospital.
--- NOTE | 2024-10-23 07:48 | PC.NURSE ---
Despite our efforts, Karen Cantu, has decided to leave against medical advice (AMA). Patient was admitted for Acute Dyspnea.? Patient is alert and oriented x4 and capable of making his own decisions regarding his treatment plan. Dr. Murillo is at bedside. The patient understands his current diagnosis and the risks of leaving AMA, including but not limited to permanent disability and . Mr. Cantu was given the opportunity to ask questions about his condition. Patient was given education on returning to the hospital for care at any time. Patient on room air, in no distress, and ambulates without assist.
--- NOTE | 2024-10-23 07:49 | EVENTNT_ITS ---
Documentation for date of: 10/23/24 Event Note Event Note: Mr. Cantu is a 54-year-old male with past medical history of HTN, insulin- dependent diabetes, COPD unknown home O2 use, HFrEF with a EF of 25 to 30% on echo January 2024, pulmonary artery hypertension with pulmonary artery systolic pressure measured at 52 mmHg suspected due to JEREMI vs chronic methamphetamine use, depression, anxiety who presented to [facility] with a chief complaint of shortness of breath for a few months associated with productive cough. He endorses non-compliance with his heart failure and COPD medications, and complaining to his who recommended him to go to the ED. Upon initial presentation, patient was hypertensive 250/170, and tachypneic. Labs was notable for INEZ and elevated BNP in the 2800s. Chest X-ray showed right pleural effusion and bilateral congestion suggestive of heart failure. Patient was very agitated and [employer] [facility] were called. He was started on a precedex drip and admitted to the ICU. He was started on anti-hypertensive medications and diuretics. Overnight, he was titrated off the precedex drip. In the morning, patient admits to using methamphetamine a few days ago. He was very agitated and yelling at staff. Patient wanted to leave AMA. He was awake, alert, orientated to name, place, year and situation. The patient refused hospital admission and wanted to be discharged. He had the opportunity to ask questions about their medical con dition. Patient refused hospital stay and left AGAINST MEDICAL ADVICE. Attending notified. I have reviewed and discussed the patient's care with my attending, Dr. Vicente Murillo MD PGY-3 #Acute hypoxic respiratory failure due to CHF in the setting of COPD, JEREMI/[place] #Acute HFrEF exacerbation #History of COPD #INEZ, cardiorenal syndrome #Hypertensive urgency vs emergency #Substance dependence disorder #Elevated LFTs #Insulin-dependent diabetes mellitus
--- NOTE | 2024-10-23 08:51 | PC.SS ---
SS update: per ICU staff, patient refused hospital stay and left AMA this morning.
== END 2024-10-23 07:48 | disposition left against medical advice (07) | DRG 194 ==
LOC: SERX 23:06 → SERHOLD 10-23 00:38 → S2SX 10-23 07:19 → SERHOLD 10-23 08:34
PROVIDERS: Student in an Organized Health Care Education/Training Program; Admitting Provider Internal Medicine; Emergency Provider Emergency Medicine; PCP Family Medicine; Visit Provider Internal Medicine
DX: I13.0 Hypertensive heart and chronic kidney disease with heart failure and stage 1 through stage 4 chronic kidney disease, or unspecified chronic kidney disease (principal); I50.23 Acute on chronic systolic (congestive) heart failure; N17.9 Acute kidney failure, unspecified; J96.21 Acute and chronic respiratory failure with hypoxia; N18.9 Chronic kidney disease, unspecified; I42.9 Cardiomyopathy, unspecified; F41.9 Anxiety disorder, unspecified; E11.22 Type 2 diabetes mellitus with diabetic chronic kidney disease; F15.10 Other stimulant abuse, uncomplicated; F17.210 Nicotine dependence, cigarettes, uncomplicated; R45.1 Restlessness and agitation; Z91.148 Patient's other noncompliance with medication regimen for other reason; Z79.4 Long term (current) use of insulin; Z79.899 Other long term (current) drug therapy; Z88.0 Allergy status to penicillin; Z88.2 Allergy status to sulfonamides; Z88.1 Allergy status to other antibiotic agents; Z53.29 Procedure and treatment not carried out because of patient's decision for other reasons
CPT/HCPCS: 36415; 71045; 80053; 80307; 81001; 82803; 83036; 83605; 83615; 83690; 83735; 83880; 84100; 84145; 84484; 85025; 85610; 85730; 87040; 87077; 87081; 87086; 87186; 87205; 93005; 94660; 96365; 96367; 96375; 99291; A9270; J0456; J0696; J1938; J3490; J7050